=== PATIENT | female | born 1960 | race Caucasian/White ===

== ENCOUNTER 2021-05-01 21:16 | Inpatient (IN) | payer MEDICARE ==
[~2021-05-01] VITALS: Ht 170.2 cm; Wt 77.1 kg
[~2021-05-01 21:16] MED LIST: MEDROL DOSEPAK 24 MG PO; ZITHROMAX250 MG PO
[2021-05-01 22:39] LABS: HEMOGLOBIN 11.9 gm/dl (12.3-15.3); RED BLOOD COUNT 4.06 M/UL (4.00-5.10); WHITE BLOOD COUNT 21.2 K/UL (4.5-11.0)
[2021-05-01 23:03] LABS: BUN/CREATININE RATIO 15 (0-10)
[2021-05-02 06:57] LABS: HEMOGLOBIN 10.9 gm/dl (12.3-15.3); RED BLOOD COUNT 3.67 M/UL (4.00-5.10); WHITE BLOOD COUNT 17.7 K/UL (4.5-11.0)
[2021-05-02 07:16] LABS: BUN/CREATININE RATIO 17 (0-10)
[2021-05-02] MEDS ORDERED: PROAIR HFA8.5 GM INH (09:47)
[2021-05-02] MEDS ORDERED: NEURONTIN800 MG PO (09:50)
[2021-05-02] MEDS ORDERED: BUPRENORPHIN-N1 EACH SL (09:50)
[2021-05-02] MEDS ORDERED: ONDANSETRON HCL8 MG PO (09:50)
[2021-05-02] MEDS ORDERED: JARDIANCE25 MG PO (09:51)
[2021-05-02] MEDS ORDERED: ZESTRIL 40 MG T40 MG PO (09:51)
[2021-05-02] MEDS ORDERED: NEXIUM40 MG PO (09:54)
[2021-05-02] MEDS ORDERED: DIABETA 5 MG TAB5 MG PO (09:55)
[2021-05-02] MEDS ORDERED: HYDROCHLOROTHIA25 MG PO (09:55)
[2021-05-02] MEDS ORDERED: SYNTHROID125 MCG PO (09:55)
[2021-05-02] MEDS ORDERED: VITAMIN D350 MC3 PO (09:56)
[2021-05-02] MEDS ORDERED: METFORMIN HCL1000 MG PO (09:56)
[2021-05-02] MEDS ORDERED: JANUVIA100 MG PO (09:58)
[2021-05-02] MEDS ORDERED: CRESTOR20 MG PO (09:58)
[2021-05-03 03:41] LABS: HEMOGLOBIN 9.3 gm/dl (12.3-15.3)
[2021-05-03 03:55] LABS: RED BLOOD COUNT 3.16 M/UL (4.00-5.10)
[2021-05-03 04:33] LABS: BUN/CREATININE RATIO 18 (0-10)
[2021-05-03] MEDS ORDERED: LEVOFLOXACIN750 MG PO (17:31)
== END 2021-05-03 20:16 | disposition home or self-care (01) | DRG 177 ==
LOC: ER1 21:16 → CDU 05-02 06:03 → M/S 05-02 16:15
PROVIDERS: Internal Medicine; Physician Assistant Medical; ADMIT Internal Medicine
PROC: 8E0ZXY6 Isolation (ICD-10-PCS; principal; 2021-05-02)
DX: U07.1 COVID-19 (principal); J12.82 Pneumonia due to coronavirus disease 2019; J15.9 Unspecified bacterial pneumonia; J96.01 Acute respiratory failure with hypoxia; G93.41 Metabolic encephalopathy; E87.1 Hypo-osmolality and hyponatremia; E87.2 Acidosis; E87.6 Hypokalemia; E87.8 Other disorders of electrolyte and fluid balance, not elsewhere classified; E86.0 Dehydration; I10 Essential (primary) hypertension; F11.90 Opioid use, unspecified, uncomplicated; E11.9 Type 2 diabetes mellitus without complications; E03.9 Hypothyroidism, unspecified; Z79.4 Long term (current) use of insulin
CPT/HCPCS: 36415; 36600; 51701; 70450; 71045; 80048; 80053; 80307; 81001; 82009; 82140; 82803; 82962; 83605; 83690; 83880; 84439; 84443; 85025; 85027; 85610; 85730; 87040; 87086; 93005; 96365; 96366; 96367; 99285; J0456; J0696; J1650; J2405; J3480; J7030; J7120; U0002